=== PATIENT | male | born 1945 | race American Indian/Alaskan Native ===

== ENCOUNTER 2017-07-13 12:50 | Emergency (ER) | payer MEDICARE ==
[2017-07-13 13:04] VITALS: BP 119/75
--- NOTE | 2017-07-13 18:21 | Emergency Department Report ---
ED ENT HPI - General Chief complaint: Dental/Oral Stated complaint: ABCESS/FACE SWOLLEN RIGHT SIDE Time Seen by Provider: 07/13/17 18:16 Source: patient Mode of arrival: Ambulatory Limitations: No Limitations - History of Present Illness Initial comments: This is a 72-year-old -Polish male who presents with right-sided facial swelling and pain from tooth at for 3 days. Patient reports using warm compresses to a decreased swelling on right side of cheek. He woke up with severe morning with increased swelling to the right cheek and pain was 10 out of 10 from tooth ache. He is currently taking insulin use with no improvement of symptoms. Patient reports multiple cavities and teeth that he has removed himself because he cannot get in to the dentist. Patient denies difficulty swallowing, recent trauma, sore throat, ear pain, and fever. MD complaint: tooth pain, other (right sided facial swelling) Location: tooth # (4 & 5) 1 - Dental caries Severity: moderate Severity scale (0 -10): 7 Quality: aching, sharp Consistency: constant Improves with: none Worsens with: eating Context- Dental: history of dental caries, poor dental care Associated Symptoms: gum swelling, toothache. denies: fever, cough, pain with swallowing, sore throat, tinnitus, hearing loss, discharge from ear, rhinorrhea - Related Data Previous Rx's Medication Instructions Recorded Last Taken Type Clindamycin [Clindamycin CAP] 300 mg PO Q8H 10 Days #30 cap 07/13/17 Unknown Rx traMADol [Ultram 50 MG tab] 50 mg PO Q6HR PRN #15 tablet 07/13/17 Unknown Rx Allergies Allergy/AdvReac Type Severity Reaction Status Date / Time No Known Allergies Allergy Unverified 07/13/17 13:01 ED Dental HPI - General Chief complaint: Dental/Oral Stated complaint: ABCESS/FACE SWOLLEN RIGHT SIDE Time Seen by Provider: 07/13/17 18:16 Source: patient Mode of arrival: Ambulatory Limitations: No Limitations - Related Data Previous Rx's Medication Instructions Recorded Last Taken Type Clindamycin [Clindamycin CAP] 300 mg PO Q8H 10 Days #30 cap 07/13/17 Unknown Rx traMADol [Ultram 50 MG tab] 50 mg PO Q6HR PRN #15 tablet 07/13/17 Unknown Rx Allergies Allergy/AdvReac Type Severity Reaction Status Date / Time No Known Allergies Allergy Unverified 07/13/17 13:01 ED Review of Systems ROS: Stated complaint: ABCESS/FACE SWOLLEN RIGHT SIDE Other details as noted in HPI Constitutional: denies: chills, fever ENT: dental pain (right upper side #4 & 5, with right sided facial swelling). denies: ear pain, throat pain Respiratory: denies: cough, shortness of breath, wheezing Cardiovascular: denies: chest pain, palpitations Gastrointestinal: denies: abdominal pain, nausea, vomiting, diarrhea Neurological: denies: headache, weakness, numbness, paresthesias Psychiatric: denies: anxiety, depression ED Past Medical Hx - Past Medical History Hx Hypertension: Yes Hx Congestive Heart Failure: Yes - Social History Smoking Status: Current Every Day Smoker - Medications Home Medications: Home Medications Medication Instructions Recorded Confirmed Last Taken Type Clindamycin [Clindamycin CAP] 300 mg PO Q8H 10 Days #30 cap 07/13/17 Unknown Rx traMADol [Ultram 50 MG tab] 50 mg PO Q6HR PRN #15 tablet 07/13/17 Unknown Rx ED Physical Exam - General Limitations: No Limitations General appearance: alert, in no apparent distress - ENT ENT exam: Present: mucous membranes moist, other (dental caries #4&5, swelling of surrounding mucosa, no abscess or drainage) - Respiratory Respiratory exam: Present: normal lung sounds bilaterally. Absent: respiratory distress - Cardiovascular Cardiovascular Exam: Present: regular rate, normal rhythm, normal heart sounds. Absent: systolic murmur, diastolic murmur, rubs, gallop - GI/Abdominal GI/Abdominal exam: Present: soft, normal bowel sounds. Absent: organomegaly, mass - Neurological Exam Neurological exam: Present: alert, oriented X3, normal gait - Psychiatric Psychiatric exam: Present: normal affect, normal mood - Skin Skin exam: Present: warm, dry, intact, normal color. Absent: rash ED Course Vital Signs 07/13/17 13:01 Temperature 98.5 F Pulse Rate 68 Respiratory 18 Rate Blood Pressure 119/75 O2 Sat by Pulse 98 Oximetry ED Medical Decision Making - Medical Decision Making This is a 72-year-old male that presents with toothache and right side facial swelling for 3 days. Patient is stable and was examined by me. Given tramadol once in ER. Susceptible of dental abscess and dental caries. Discussed plan with patient. She agreed with ER plan. Discharged home with clindamycin and tramadol. Follow up with dentist and referral to [facility]. Critical care attestation.: If time is entered above; I have spent that time in minutes in the direct care of this critically ill patient, excluding procedure time. ED Disposition Clinical Impression: Toothache, Right facial swelling Disposition: TO HOME OR SELFCARE Is pt being admited?: No Does the pt Need Aspirin: No Condition: Stable Instructions: Dental Caries (ED), Toothache (ED) Additional Instructions: Complete all days of clindamycin as prescribed for 10 days. Follow up with Dentist at [facility] in 24-72 hours. Prescriptions: Clindamycin [Clindamycin CAP] 300 mg PO Q8H 10 Days #30 cap traMADol [Ultram 50 MG tab] 50 mg PO Q6HR PRN #15 tablet PRN Reason: Pain Referrals: [facility] [Outside] - 3-5 Days [facility] [Outside] - 3-5 Days [facility] [Outside] - 3-5 Days Time of Disposition: 18:34 Print Language: MALAY
[2017-07-13] MEDS ORDERED: ULTRAM PO ONE (18:29)
== END 2017-07-13 18:44 | disposition home or self-care (01) ==
LOC: ED 12:50
DX: K08.89 Other specified disorders of teeth and supporting structures (principal); I11.0 Hypertensive heart disease with heart failure; F17.200 Nicotine dependence, unspecified, uncomplicated
CPT/HCPCS: 99282